=== PATIENT | female | born 2000 | race African-American/Black ===

== ENCOUNTER 2025-05-02 08:34 | Emergency (ER) | payer MEDICAID, OTHER ==
[~2025-05-02] VITALS: Ht 162.6 cm; Wt 91.3 kg
[2025-05-02 08:36] VITALS: BP 126/77; PULSE 81; RESP 18; TEMP 97.9; O2SAT 97
--- NOTE | 2025-05-02 09:03 | ED.PDOC ---
PROJECT LEADER HPI Comments A 25 YEAR OLD FEMALE PRESENTS TO THE ED WITH COMPLAINT OF VAGINAL SPOTTING DURING . PATIENT STATES SHE IS ABOUT 9 WEEKS AND HAS BEEN EXPERIENCING VAGINAL SPOTTING THAT STARTED YESTERDAY NIGHT. PATIENT DENIES DYSURIA, HEMATURIA, VAGINAL DISCHARGE, FEVER, CHILLS, SHORTNESS OF BREATH, CHEST PAIN, ABDOMINAL PAIN, NAUSEA, VOMITING, HEADACHE, OR OTHER COMPLAINTS. NO OTHER SYMPTOMS OR MODIFYING FACTORS AT THIS TIME. PATIENT IS ALERT, ORIENTED X 4, AND HAS STEADY GAIT. Chief Complaint: Vaginal Bleed Time Seen by MD: 08:35 Reviewed Notes: Nurses Notes, Medications, Allergies Allergies: Coded Allergies: NO KNOWN ALLERGIES (Unverified , 05/02/25) Information Source: Patient Mode of Arrival: Ambulatory Timing: Days Prehospital treatment: None Severity: Mild Vaginal Discharge: None Vaginal Lesions: None Bleeding Quality: Bright Red Vaginal Mass: None Onset Of Mass/Bleeding: Spontaneous Sexual Activity: Last Consensual Erda: Unknown Control: None History of: Current Blood Type: Unknown Symptoms of Possible : None Associated Signs and Symptoms: Vaginal Bleeding Past Medical History PAST MEDICAL HISTORY: Denies Surgical History: Denies all surgeries PANTRY GOODS WORKER 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 PANTRY GOODS 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 History Family History Family History: Reviewed,noncontributory to illness Social History Smoker: Non-Smoker Alcohol: Denies ETOH Use Drugs: Denies Drug Use Lives In: Home Constitutional: denies: chills, diaphoresis, fatigue, fever, malaise, sweats, weakness, others EENTM: denies: blurred vision, double vision, ear bleeding, ear discharge, ear drainage, ear pain, ear ringing, eye pain, eye redness, hearing loss, mouth pain, mouth swelling, nasal discharge, nose bleeding, nose congestion, nose pain, photophobia, tearing, throat pain, throat swelling, voice changes, others Respiratory: denies: cough, hemoptysis, orthopnea, SOB at rest, shortness of breath, SOB with excertion, stridor, wheezing, others Cardiovascular: denies: chest pain, dizzy spells, diaphoresis, Dyspnea on exertion, edema, irregular heart beat, left arm pain, lightheadedness, palpitations, PND, syncope, others Gastrointestinal: denies: abdomen distended, abdominal pain, blood streaked bowels, constipated, diarrhea, dysphagia, difficulty swallowing, hematemesis, melena, nausea, poor appetite, poor fluid intake, rectal bleeding, rectal pain, vomiting, others Genitourinary: reports: abnormal vagina bleeding, ; denies: burning, dyspareunia, dysuria, flank pain, frequency, hematuria, incontinence, pain, vagina discharge, urgency, others Neurological: denies: dizziness, fainting, headache, left sided numbness, left sided weakness, numbness, paresthesia, pre-existing deficit, right sided numbness, right sided weakness, seizure, speech problems, tingling, tremors, weakness, others Musculoskeletal: denies: back pain, gout, joint pain, joint swelling, muscle pain, muscle stiffness, neck pain, others Integumetry: denies: bruises, change in color, change in hair/nails, dryness, laceration, lesions, lumps, rash, wounds, others Allergic/Immunocompromised: denies: Difficulty Healing, Frequent Infections, Hives, Itching, others Hematologic/Lymphatic: denies: anemia, blood clots, easy bleeding, easy bruising, swollen glands, others Endocrine: denies: excessive hunger, excessive sweating, excessive thirst, excessive urination, flushing, intolerance to cold, intolerance to heat, unexplained weight gain, unexplained weight loss, others Psychiatric: denies: anxiety, bipolar disorder, depression, hopeless, panic disorder, schizophrenia, sleepless, suicidal, others All Other Systems: Reviewed and Negative Physical Exam General Appearance: No Apparent Distress, Normal HEENT: Normal ENT Inspection, PERRL/EOMI, Pharynx Normal, TMs Normal Neck: Full Range of Motion, Non-Tender, Normal, Normal Inspection Respiratory: Chest Non-Tender, Lungs Clear, No Accessory Muscle Use, No Respiratory Distress, Normal Breath Sounds Cardiovascular: No Edema, No JVD, No Murmur, No Gallop, Normal Peripheral Pulses, Regular Rate/Rhythm Breast Exam: Deferred Gastrointestinal: No Organomegaly, Non Tender, No Pulsatile Mass, Normal Bowel Sounds, Soft Genitalia: Deferred Pelvic: Normal External Exam, Other (VAGINAL SPOTTING, NO VAGINAL BLEEDING AND BLOOD CLOTS. ) Rectal: Deferred Extremities: No calf tenderness, Normal capillary refill, Normal inspection, Normal range of motion, Non-tender, No pedal edema Musculoskeletal : Apperance: Normal Neurologic: Alert, manager cardiac cath II-XII nml as Tested, No Motor Deficits, Normal Affect, Normal Mood, No Sensory Deficits Cerebellar Function: Normal Reflexes: Normal Skin: Dry, Normal Color, Warm Peripheral Pulses: 2+ carotid (R), 2+ carotid (L) Lymphatic: No Adenopathy Was a procedure done? Was a procedure done?: No Differential Diagnosis (PANTRY GOODS WORKER) Vaginal Bleeding: - Incomplete, - Threatened, Ectopic , UTI, Vaginitis Mass / Lesion: N/A Vaginal Discharge: N/A X-Ray, Labs, Meds, VS Vital Signs Date Time Temp Pulse Resp B/P (MAP) Pulse Ox O2 Delivery O2 Flow Rate FiO2 05/02/25 08:36 97.9 81 18 126/77 97 97.9 Lab Test 05/02/25 09:02 05/02/25 08:50 Range/Units White Blood Count 4.4 4.4-10.8 10^3/uL Red Blood Count 4.54 4.0-5.20 10^6/uL Hemoglobin 13.4 12.2-16.2 g/dL Hematocrit 40.2 36.0-46.0 % Mean Corpuscular Volume 88.6 80.0-100.0 fL Mean Corpuscular Hemoglobin 29.5 28.0-32.0 pg Mean Corpuscular Hemoglobin Concent 33.3 32.0-36.0 g/dL Red Cell Distribution Width 13.4 11.8-14.3 % Platelet Count 359 140-450 10^3/uL Mean Platelet Volume 7.1 6.9-10.8 fL Neutrophils (%) (Auto) 52.3 37.0-80.0 % Lymphocytes (%) (Auto) 36.3 10.0-50.0 % Monocytes (%) (Auto) 9.2 0.0-12.0 % Eosinophils (%) (Auto) 1.6 0.0-7.0 % Basophils (%) (Auto) 0.6 0.0-2.0 % Neutrophils # (Auto) 2.3 1.6-8.6 10 ^3/uL Lymphocytes # (Auto) 1.6 0.4-5.4 10 ^3/uL Monocytes # (Auto) 0.4 0-1.3 10 ^3/uL Eosinophils # (Auto) 0.1 0-0.8 10 ^3/uL Basophils # (Auto) 0 0-0.2 10 ^3/uL Nucleated Red Blood Cells 0.1 % Beta HCG, Quantitative 3807.1 H 1.5-4.2 mIU/mL Urine Color Yellow Yellow Urine Clarity Turbid H Clear Urine pH 5.5 5.0-9.0 Urine Specific Singer 1.031 1.001-1.035 Urine Protein Negative Negative Urine Ketones Negative Negative Urine Blood 3+ H Negative /uL Urine Nitrite Negative Negative Urine Bilirubin Negative Negative Urine Urobilinogen Normal Negative mg/dL Urine Leukocyte Esterase 1+ Negative /uL Urine RBC 4 0 - 4 /hpf Urine Microscopic WBC 4 0-5 /HPF Urine Squamous Epithelial Cells Few <5 /hpf Urine Bacteria None seen None Seen /hpf Urine Mucus Few None Seen Urine Glucose Normal Normal mg/dL Urine Test Positive Negative OB ULTRASOUND <14 WEEKS: HISTORY: VAGINAL SPOTTING, 9WEEKS TECHNIQUE: Multiple real-time grayscale sonographic images of the pelvis with duplex Doppler color flow, spectral and M-mode analysis. TRANSDUCERS: Transabdominal and transvaginal COMPARISON: US OB TRANS VAGINAL US on DOS: 05/02/25 FINDINGS: The uterus measures 7.0 x 6.8 x 5.2 cm. Left lateral uterine fibroid measures 1.3 cm. The cervix is closed. Right ovary measures 3.7 x 2.9 x 1.8 cm with normal Doppler color flow. Right ovarian cyst measures 1.6 cm. Possible corpus luteal cyst measures 1.6 cm. Left ovary measures 2.8 x 1.5 x 1.8 cm with normal Doppler color flow. Possible IUP single fetus at 6 weeks and 6 days average ultrasound age based on mean crown-rump length of 0.5 cm and gestational sac size of 2.6 cm heart rate detected at 0 beats per minute. Yolk sac is not visualized. Amniotic fluid is subjectively within normal limits Edel-gestational space: Unremarkable IMPRESSION: IUP single fetus 6 weeks and 6 days AUA corresponding to an ROYA of 12/20/2025. No heart rate is present at this time. Findings may represent spontaneous versus early gestational state. Close clinical and sonographic follow-up advised. Recommend correlation with beta HCG. ATED BY: CURTIS CORONEL MD DICTATED DATE/TIME: 05/02/25 1043 SIGNED BY: CURTIS CORONEL MD SIGNED DATE/TIME: 05/02/25 1043 CC: X-Ray, Labs, Meds, VS Comment EXTERNAL MEDICAL RECORDS REVIEWED: [NONE] INDEPENDENT HISTORIANS: [NONE] SOCIAL DETERMINANTS OF HEALTH: [NONE] LABS ORDERED: CBC, UA, URINE , BETA HCG QUANT REVIEWED AND INTERPRETED RESULTS: [facility] [place] QUANT 3,807.1 IMAGING ORDERED: US OB < 14 WKS TREATMENTS ORDERED: NONE PROCEDURES PERFORMED: NONE CRITICAL CARE TIME: NONE I HAVE DISCUSSED THE PATIENT WITH THE ATTENDING PHYSICIAN DR. IGLESIAS AND HE AGREES WITH THE PATIENT'S PLAN OF CARE AND DISPOSITION. BASED ON HISTORY OF PRESENT ILLNESS, AND PHYSICAL EXAM, PATIENT WILL BE DISCHARGED HOME. SHARED DECISION MAKING: PATIENT INSTRUCTED TO FOLLOW UP WITH PRIMARY CARE PROVIDER IN 1-2 DAYS FOR RE-EVALUATION OF SYMPTOMS. PATIENT VERBALIZES UNDERSTANDING TO RETURN TO ED FOR NEW OR WORSENING SYMPTOMS OR IF FOLLOW UP WITH PCP CANNOT BE OBTAINED. PATIENT FEELS COMFORTABLE GOING HOME AT THIS TIME. ALL QUESTIONS ADDRESSED AT TIME OF DISCHARGE. Images Reviewed?: Images reviewed and evaluated by me Time of 1ST Reevaluation: 11:06 Reevaluation 1ST: Improved Patient Education/Counseling: Diagnosis, Treatment, Need For Follow Up Family Education/Counseling: Diagnosis, Treatment, Need For Follow Up Medical Screening: No EMC Exist At This Time Departure 1 Departure Time of Disposition: 11:06 Impression: Primary Impression: Vaginal spotting Additional Impression: Threatened in first trimester Disposition: 01 HOME / SELF CARE / HOMELESS Condition: Stable Additional Instructions: FOLLOW-UP WITH PCP AND PROJECT LEADER IN 1 TO 2 DAYS. RETURN TO ED FOR ANY NEW OR WORSENING SYMPTOMS. Discharged With: Self, Relative Critical Care Note Critical Care Time?: No Stability Stability form required: No I personally scribed for GIO PENG ([email or web address]) on 05/02/25 at 09:03. Electronically submitted by Ramesh Finley ([email or web address]). I personally scribed for GIO PENG ([email or web address]) on 05/02/25 at 10:51. Electronically submitted by Ramesh Finley ([email or web address]). GIO PENG May 02, 2025 09:03
[2025-05-02 09:23] LABS: Hematocrit 40.2 % (36.0-46.0); Hemoglobin 13.4 g/dL (12.2-16.2); Mean Corpuscular Hemoglobin 29.5 pg (28.0-32.0); Mean Corpuscular Volume 88.6 fL (80.0-100.0); Nucleated Red Blood Cells % 0.1 %
[2025-05-02 09:35] LABS: Urine Protein, UAD Negative (Negative)
--- NOTE | 2025-05-02 10:45 | DVH ---
OB ULTRASOUND <14 WEEKS: HISTORY: VAGINAL SPOTTING, 9WEEKS TECHNIQUE: Multiple real-time grayscale sonographic images of the pelvis with duplex Doppler color f low, spectral and M-mode analysis. TRANSDUCERS: Transabdominal and transvaginal COMPARISON: US OB TRANS VAGINAL US on DOS: 05/02/25 FINDINGS: The uterus measures 7.0 x 6.8 x 5.2 cm. Left lateral uterine fibroid measures 1.3 cm. The cervix is closed. Right ovary measures 3.7 x 2.9 x 1.8 cm with normal Doppler color flow. Right ovarian cyst measures 1 .6 cm. Possible corpus luteal cyst measures 1.6 cm. Left ovary measures 2.8 x 1.5 x 1.8 cm with normal Doppler color flow. Possible IUP single fetus at 6 weeks and 6 days average ultrasound age based on mean crown-rump alphonso th of 0.5 cm and gestational sac size of 2.6 cm heart rate detected at 0 beats per minute. Yolk sac is not visualized. Amniotic fluid is subjectively within normal limits Edel-gestational space: Unremarkable IMPRESSION: IUP single fetus 6 weeks and 6 days AUA corresponding to an ROYA of 12/20/2025. No heart rate is present at this time. Findings may represent spontaneous versus early gestational state. Close clinical and sonogr aphic follow-up advised. Recommend correlation with beta HCG.
== END 2025-05-02 11:00 | disposition home or self-care (01) ==
LOC: ER 08:34
DX: O20.0 Threatened abortion (principal); Z3A.09 9 weeks gestation of pregnancy
CPT/HCPCS: 36415; 76801; 76817; 81001; 81025; 84702; 85025

== ENCOUNTER 2025-05-05 00:27 | Emergency (ER) | payer MEDICAID ==
[~2025-05-05] VITALS: Ht 160 cm; Wt 94.5 kg
--- NOTE | 2025-05-05 01:18 | ED.PDOC ---
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 Patient reports on returning to the ED following previous visit 3x days ago for ongoing symptoms. She endorses on receiving transvaginal ultrasounds and labs then during previous visit. Ultrasound showed single fetus at 6 weeks and 6 days with no heart rate is present. Patient denies any further acute symptoms. Patient's beta-hCG at that time was 3807. Chief Complaint: Vaginal Bleed Time Seen by MD: 00:50 Reviewed Notes: Nurses Notes, Medications, Allergies Allergies: Coded Allergies: NO KNOWN ALLERGIES (Unverified , 05/02/25) Information Source: Patient Mode of Arrival: Ambulatory Timing: Days Prehospital treatment: None Severity: Moderate Bleeding Quality: Bright Red Onset Of Mass/Bleeding: Spontaneous Past Medical History PAST MEDICAL HISTORY: Denies Past Medical History (Other): Patient is currently six weeks and six days without appreciable heart tones. 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 History Family History Family History: Reviewed,noncontributory to illness Social History Smoker: Non-Smoker Alcohol: Denies ETOH Use Drugs: Denies Drug Use Lives In: Home Constitutional: denies: chills, diaphoresis, fatigue, fever, malaise, sweats, weakness, others EENTM: denies: blurred vision, double vision, ear bleeding, ear discharge, ear drainage, ear pain, ear ringing, eye pain, eye redness, hearing loss, mouth pain, mouth swelling, nasal discharge, nose bleeding, nose congestion, nose pain, photophobia, tearing, throat pain, throat swelling, voice changes, others Respiratory: denies: cough, hemoptysis, orthopnea, SOB at rest, shortness of breath, SOB with excertion, stridor, wheezing, others Cardiovascular: denies: chest pain, dizzy spells, diaphoresis, Dyspnea on exertion, edema, irregular heart beat, left arm pain, lightheadedness, palpitations, PND, syncope, others Gastrointestinal: reports: abdominal pain; denies: abdomen distended, blood streaked bowels, constipated, diarrhea, dysphagia, difficulty swallowing, hematemesis, melena, nausea, poor appetite, poor fluid intake, rectal bleeding, rectal pain, vomiting, others Genitourinary: reports: abnormal vagina bleeding; denies: burning, dyspareunia, dysuria, flank pain, frequency, hematuria, incontinence, pain, , vagina discharge, urgency, others Neurological: denies: dizziness, fainting, headache, left sided numbness, left sided weakness, numbness, paresthesia, pre-existing deficit, right sided numbness, right sided weakness, seizure, speech problems, tingling, tremors, weakness, others Musculoskeletal: denies: back pain, gout, joint pain, joint swelling, muscle pain, muscle stiffness, neck pain, others Integumetry: denies: bruises, change in color, change in hair/nails, dryness, laceration, lesions, lumps, rash, wounds, others Allergic/Immunocompromised: denies: Difficulty Healing, Frequent Infections, Hives, Itching, others Hematologic/Lymphatic: denies: anemia, blood clots, easy bleeding, easy bruising, swollen glands, others Endocrine: denies: excessive hunger, excessive sweating, excessive thirst, excessive urination, flushing, intolerance to cold, intolerance to heat, unexplained weight gain, unexplained weight loss, others Psychiatric: denies: anxiety, bipolar disorder, depression, hopeless, panic disorder, schizophrenia, sleepless, suicidal, others All Other Systems: Reviewed and Negative (Comprehensive review of systems are negative unless stated in HPI) Physical Exam General Appearance: Moderate Distress (Due to abdominal pain concerns.), Obese HEENT: Normal ENT Inspection, Pharynx Normal, TMs Normal Neck: Full Range of Motion, Non-Tender, Normal, Normal Inspection Respiratory: Chest Non-Tender, Lungs Clear, No Accessory Muscle Use, No Respiratory Distress, Normal Breath Sounds Cardiovascular: No Edema, No JVD, No Murmur, No Gallop, Normal Peripheral Pulses, Regular Rate/Rhythm Breast Exam: Deferred Gastrointestinal: Other (Diffuse lower abdominal tenderness to palpation goyo aterally. Difficult to assess due to body habitus. No signs of trauma.) Genitalia: Deferred Pelvic: Deferred Rectal: Deferred Extremities: No calf tenderness, Normal capillary refill, Normal inspection, Normal range of motion, Non-tender, No pedal edema Neurologic: Alert Cerebellar Function: NOT DONE Reflexes: NOT DONE Skin: Dry, Normal Color, Warm Lymphatic: No Adenopathy Was a procedure done? Was a procedure done?: No Differential Diagnosis (LOADING UNIT OPERATOR CRIMPING) Vaginal Bleeding: - Complete, - Incomplete, - Inevitable, - Missed, - Threatened, Blood Loss Anemia, Hormonal, Menorrhagia, Menstrual Bleeding, UTI, Vaginitis X-Ray, Labs, Meds, VS Vital Signs Date Time Temp Pulse Resp B/P (MAP) Pulse Ox O2 Delivery O2 Flow Rate FiO2 05/05/25 00:28 98.3 95 16 131/77 98 98.3 Lab Test 05/05/25 01:34 Range/Units White Blood Count Pending Red Blood Count Pending Hemoglobin Pending Hematocrit Pending Mean Corpuscular Volume Pending Mean Corpuscular Hemoglobin Pending Mean Corpuscular Hemoglobin Concent Pending Red Cell Distribution Width Pending Platelet Count Pending Mean Platelet Volume Pending Neutrophils (%) (Auto) Pending Lymphocytes (%) (Auto) Pending Monocytes (%) (Auto) Pending Basophils (%) (Auto) Pending Neutrophils # (Auto) Pending Lymphocytes # (Auto) Pending Monocytes # (Auto) Pending Beta HCG, Quantitative Pending X-Ray, Labs, Meds, VS Comment Multiple chest were pending at time of this note. OB ultrasound revealed a seven week three day without appreciable heart tones. This may be cash posting representative of a probable miscarriage, but that can not be confirmed today. Patient care will be transferred to Dr. Alexandre for review of laboratory and HCG values when returned. 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 Patient will return to ED in three days for re-eval uation if unable to ascertain certified adapted physical educator support. e-Prescriptions Acetaminophen (Acetaminophen) 500 Mg Tab 500 MG PO Q4HP PRN, #30 TAB Prov: CHRIS FLORES PAC 05/05/25 Discharged With: Self, Friend Critical Care Note Critical Care Time?: No Stability Stability form required: No Heart Score Heart Score: Heart Score Response (Comments) Value History N/A 0 EKG N/A 0 Age N/A 0 Risk Factors N/A 0 Troponin N/A 0 Total 0 I personally scribed for CHRIS FLORES PAC ([email or web address]) on 05/05/25 at 01:18. Electronically submitted by Fortino Santo [email or web address]). CHRIS FLORES PAC May 05, 2025 01:18
--- NOTE | 2025-05-05 01:37 | DVH ---
OB ULTRASOUND <14 WEEKS: HISTORY: Vaginal bleed TECHNIQUE: Multiple real-time grayscale sonographic images of the pelvis with duplex Doppler color f low, spectral and M-mode analysis. COMPARISON: US OB TRANS VAGINAL US on DOS: 05/05/25, US OB TRANS VAGINAL US on DOS: 05/02/25, US OB ULT RASOUND COMP LESS 14WKS on DOS: 05/02/25 FINDINGS: The uterus measures 8.1 x 7.7 x 5.7 cm. No significant pelvic cul-de-sac free fluid. Right ovary measures 3.5 x 2.8 x 2.7 cm with normal Doppler color flow and contains an anechoic cyst measuring 1.4 x 1.2 x 0.9 cm. Left ovary is not visualized. IUP single fetus at 7 weeks 3 days average ultrasound age based on mean crown-rump length of 0.4 cm and an irregular gestational sac measuring 3.5 cm. No heart tones are identified. No evidence of yolk sac. IMPRESSION: 1. IUP single fetus 7 weeks 3 days AUA. 2. No heart tones are identified. 3. Findings are suspicious for but not diagnostic of failure.
[2025-05-05] MEDS ORDERED: ACET500T58 PO (02:12)
[2025-05-05 02:13] LABS: Hematocrit 37.6 % (36.0-46.0); Hemoglobin 12.7 g/dL (12.2-16.2); Mean Corpuscular Hemoglobin 30.1 pg (28.0-32.0); Mean Corpuscular Volume 89.0 fL (80.0-100.0); Nucleated Red Blood Cells % 0.1 %
[2025-05-05 04:40] VITALS: BP 138/85; TEMP 98.4
[2025-05-05 04:59] VITALS: PULSE 85; RESP 17; O2SAT 96
[2025-05-05] MEDS: ACETAMINOPHEN 325 MG TAB PO ONE (05:11)
== END 2025-05-05 05:13 | disposition home or self-care (01) ==
LOC: ER 00:29
DX: O20.0 Threatened abortion (principal); Z3A.01 Less than 8 weeks gestation of pregnancy
CPT/HCPCS: 36415; 76801; 76817; 84702; 85025; 86901